=== PATIENT | male | born 1965 | race Caucasian/White ===

== ENCOUNTER 2017-09-09 16:08 | Emergency (ER) | payer OTHER ==
[2017-09-09 16:13] VITALS: TEMP 97.5
[2017-09-09] MEDS ORDERED: ADENOSINE 6 MG/2 ML VIAL ONE ×2 (16:17→16:24)
--- NOTE | 2017-09-09 16:17 | EDPHY ---
H & P Stated Complaint: Rapid heart rate >3hrs Time Seen by Provider: 09/09/17 16:17 - Personal History Current Tetanus Diphtheria and Acellular Pertussis (TDAP): Yes - Medical/Surgical History Other PMH: previous tachycardia untreated - Social History Smoking Status: Never smoked Constitutional: Initial Vital Signs Temperature (C) 36.4 C 09/09/17 16:09 Heart Rate 178 H 09/09/17 16:09 Respiratory Rate 20 09/09/17 16:09 Blood Pressure 94/57 L 09/09/17 16:09 O2 Sat (%) 99 09/09/17 16:09 O2 Delivery Mode Nasal Cannula O2 (L/minute) 2 Allergies/Adverse Reactions: No Known Allergies Allergy (Unverified 09/09/17 16:12) Home Medications: Medication Instructions Recorded NK [No Known Home Meds] 09/09/17 Medical Decision Making ED Course/Re-evaluation: CHIEF COMPLAINT: Rapid heart rate HISTORY OF PRESENT ILLNESS: The patient is a 51 y/o male with 2 prior episodes of a rapid heart rate arriving with his girlfriend complaining of a rapid heart rate for the last four hours. He was skiing at [place] today and while in the lodge he climbed up some stairs and developed a sudden rapid heart rate. He measured his pulse between 180-200 and it did not improve with rest. He initially had associated substernal chest pressure that has resolved since decreasing altitude. He currently feels lightheaded, dizzy, and near-syncopal, but denies chest pain or dyspnea. He had the same symptoms a year ago after drinking an energy drink that resolved with time. He has never been evaluated for this before and has no known personal or familial cardiac disease or dysrhythmia history. REVIEW OF SYSTEMS: A 10 point review of systems was performed and is negative with the exception of the elements mentioned in the history of present illness. PHYSICAL EXAM: HR 170, BP 94/57, O2 Sat, RR. Temp noted General Appearance: Alert, well hydrated, appropriate, lying flat, mildly diaphoretic. Head: Atraumatic without scalp tenderness or obvious injury Eyes: Pupils equal, round, reactive to light and accommodation, EOMI, no trauma , no injection. Ears: Clear bilaterally, no perforation, normal landmarks Nose: Atraumatic, no rhinorrhea, clear. Throat: There is no erythema or exudates, no lesions, normal tonsils, mucus membranes moist. Neck: Supple, nontender, no lymphadenopathy. Respiratory: No retractions, no distress, no wheezes, and no accessory muscle use. Lungs are clear to auscultation bilaterally. Cardiovascular: Rapid rate and rhythm, no murmurs, rubs, or gallops. Good capillary refill all extremities. Gastrointestinal: Abdomen is soft, nontender, non-distended, no masses, no rebound, no guarding, no peritoneal signs. Musculoskeletal: Normal active ROM of all extremities, atraumatic. Neurological: Alert, appropriate, and interactive. The patient has non-focal cranial nerves, motor, sensory, and cerebellar exam. Skin: No rashes, good turgor, no nodules on palpation. Past medical history: Prior episodes of rapid heart rate Past surgical history: Denies Family history: No cardiac disease or dysrhythmia history Social history: Girlfriend at beside. Lives between [place] and [place]. PCP: Dr. Littlejohn. DIAGNOSTICS/PROCEDURES/CRITICAL CARE TIME: The 12 lead EKG was interpreted by myself. SVT rate 170. See hard copy and/or "tracemaster" electronic copy for interpretation. The 12 lead EKG was interpreted by myself. Sinus tachycardia rate 112. See hard copy and/or "tracemaster" electronic copy for interpretation. Critical care time spent by me, Dr. Wilson, exclusively with this patient was 35 minutes, exclusive of PA time and exclusive of procedures. The organ system at risk was cardiovascular. Time spent in serial assessments of the patient, discussion with patient's family, consideration of medical and electrical cardioversion, cardiology consultation, and review of EKGs. DIFFERENTIAL DIAGNOSIS: The differential diagnosis for the patient's narrow complex tachycardia included but was not limited to various causes of sinus tachycardia such as dehydration and medicines, SVT, atrial flutter, atrial fibrillation, pulmonary causes. MEDICAL DECISION MAKING: This is a healthy 51 y/o male with history of 2 prior episodes of rapid heart rate who presents in SVT around 170 for about 4 hours. He alert and oriented, but feels lightheaded and near-syncopal. Plan for IV, EKG, and adenosine to attempt to convert rhythm. 1622: 12mg IV adenosine administered. No change in rhythm. Repeat EKG with doubled paper speed doesn't show P waves and appears regular - consistent with SVT. Will try another dose of adenosine before considering electrical cardioversion. 1628: Additional 12mg IV adenosine administered. Patient converted to sinus tachycardia around 112 and HR is slowly dropping. BP 92/65. Labs ordered including troponin and BNP ordered to assess for heart strain. 1642: Consulted with Dr. Mederos, board certified family physician. His office will contact patient on Monday to arrange echocardiogram and EP follow up. Labs show mild renal insufficiency, likely related to poor perfusion during 4 hours of SVT. No anemia, normal troponin and BNP. Reassessed patient and discussed work up. He is resting comfortable. HR 94, BP 95/70. He feels ready for discharge home. Discussed referral to cardiology for echo and EP consultation. Return precautions discussed. He agrees with this plan. - Data Points Laboratory Results: Laboratory Results 09/09/17 16:20 09/09/17 16:20 09/09/17 09/09/17 16:20 16:20 WBC 9.93 10^3/uL H 10^3/uL (3.80-9.50) RBC 5.68 10^6/uL 10^6/uL (4.40-6.38) Hgb 16.3 g/dL g/dL (13.7-17.5) Hct 45.2 % % (40.0-51.0) MCV 79.6 fL L fL (81.5-99.8) MCH 28.7 pg pg (27.9-34.1) MCHC 36.1 g/dL g/dL (32.4-36.7) RDW 13.7 % % (11.5-15.2) Plt Count 255 10^3/uL 10^3/uL (150-400) MPV 11.0 fL fL (8.7-11.7) Neut % (Auto) 63.2 % % (39.3-74.2) Lymph % (Auto) 28.0 % % (15.0-45.0) [place] % (Auto) 7.6 % % (4.5-13.0) Eos % (Auto) 0.4 % L % (0.6-7.6) Baso % (Auto) 0.4 % % (0.3-1.7) Nucleat RBC Rel Count 0.0 % % (0.0-0.2) Absolute Neuts (auto) 6.28 10^3/uL 10^3/uL (1.70-6.50) Absolute Lymphs (auto) 2.78 10^3/uL 10^3/uL (1.00-3.00) Absolute Monos (auto) 0.75 10^3/uL 10^3/uL (0.30-0.80) Absolute Eos (auto) 0.04 10^3/uL 10^3/uL (0.03-0.40) Absolute Basos (auto) 0.04 10^3/uL 10^3/uL (0.02-0.10) Absolute Nucleated RBC 0.00 10^3/uL 10^3/uL (0-0.01) Immature Gran % 0.4 % % (0.0-1.1) Immature Gran # 0.04 10^3/uL 10^3/uL (0.00-0.10) Sodium 139 mEq/L mEq/L (134-144) Potassium 3.6 mEq/L mEq/L (3.5-5.2) Chloride 104 mEq/L mEq/L (97-110) Carbon Dioxide 17 mEq/l L mEq/l (22-31) Anion Gap 18 mEq/L H mEq/L (8-16) BUN 18 mg/dL mg/dL (7-23) Creatinine 1.5 mg/dL H mg/dL (0.7-1.3) Estimated GFR 49 Glucose 133 mg/dL H mg/dL (70-100) Calcium 9.9 mg/dL mg/dL (8.5-10.4) Troponin I < 0.012 ng/mL ng/mL (0.000-0.034) NT-Pro-B Natriuret Pep 81 pg/mL pg/mL (0-125) Medications Given: Discontinued Medications Adenosine (Adenosine) 12 mg IVP EDNOW ONE Stop: 09/09/17 16:33 Last Admin: 09/09/17 16:20 Dose: 12 mg Adenosine (Adenosine) 12 mg IVP EDNOW ONE Stop: 09/09/17 16:34 Last Admin: 09/09/17 16:25 Dose: 12 mg Sodium Chloride (Ns) 2,000 mls @ 0 mls/hr IV ONCE ONE PRN Reason: Wide Open Stop: 09/09/17 16:34 Last Admin: 09/09/17 16:44 Dose: 2,000 mls Metoprolol Tartrate (Lopressor Injection) 5 mg IVP EDNOW ONE Stop: 09/09/17 16:33 Last Admin: 09/09/17 16:37 Dose: 5 mg Departure - Departure Disposition: Home, Routine, Self-Care Clinical Impression: Paroxysmal SVT (supraventricular tachycardia), Renal insufficiency Condition: Good Instructions: Supraventricular Tachycardia (ED) Additional Instructions: 1. You should receive a call from [facility] between 8a-11a on Monday to arrange an echocardiogram and consultation with Dr. Jackson. Please contact them if you do not receive this call. You need to follow up with a board certified family physician without fail within the week. 2. Return to the ED for recurrent symptoms, chest pain, shortness of breath, palpitations, or other worsening of condition. Referrals: Lori Littlejohn MD [Primary Care Provider] - As per Instructions Demar Jackson MD [Medical Doctor] - As per Instructions Report Scribed for: Ravindra Wilson Report Scribed by: Leesa Bernstein Date of Report: 09/09/17 Time of Report: 16:33
--- NOTE | 2017-09-09 16:20 | CPEKG ---
Heart Rate: 169 RR Interval: 355 QRSD Interval: 80 QT Interval: 292 QTC Interval: 490 P [place]: 0 QRS [place]: 77 T Wave [place]: -16 EKG Severity - ABNORMAL ECG - EKG Impression: SUPRAVENTRICULAR TACHYCARDIA EKG Impression: REPOLARIZATION ABNORMALITY, PROB RATE RELATED Electronically Signed By: Demar Jackson 11-Sep-2017 20:29:05
[2017-09-09] MEDS ORDERED: METOPROLOL TARTRATE 5 MG/5 ML INJ ONE (16:29)
[2017-09-09] MEDS ORDERED: METOPROLOL TARTRATE 5 MG/5 ML INJ IVP ONE (16:32)
[2017-09-09] MEDS ORDERED: ADENOSINE 6 MG/2 ML VIAL IVP ONE ×2 (16:32→16:33)
[2017-09-09] MEDS ORDERED: NS 2,000 ML IV ONE (16:33)
[2017-09-09 16:35] VITALS: RESP 16
--- NOTE | 2017-09-09 16:38 | CPEKG ---
Heart Rate: 117 RR Interval: 513 P-R Interval: 152 QRSD Interval: 90 QT Interval: 336 QTC Interval: 469 P [place]: 69 QRS [place]: 82 T Wave [place]: 13 EKG Severity - OTHERWISE NORMAL ECG - EKG Impression: SINUS TACHYCARDIA Electronically Signed By: Demar Jackson 11-Sep-2017 20:28:52
[2017-09-09 16:39] LABS: PLATELET COUNT 255 10^3/uL (150-400)
[2017-09-09 17:11] VITALS: PULSE 94
[2017-09-09 17:40] VITALS: BP 99/73; O2SAT 97
== END 2017-09-09 17:40 | disposition home or self-care (01) ==
PROC: 3E0337Z Introduction of Electrolytic and Water Balance Substance into Peripheral Vein, Percutaneous Approach (ICD-10-PCS; principal; 2017-09-09)
DX: I47.1 Supraventricular tachycardia (principal); N28.9 Disorder of kidney and ureter, unspecified; R42 Dizziness and giddiness
CPT/HCPCS: 96374; J0153

== ENCOUNTER 2017-09-21 11:28 | Observation (INO) | payer OTHER ==
--- NOTE | 2017-09-21 11:30 | PDHPUP ---
History & Physical Update H&P update statement: This history and physical update is based on an assessment of the patient which was completed after admission or registration (within 24 hours), but prior to the surgery/procedure. H&P update: H&P reviewed & patient examined, no change in patient's condition since H&P completed
[2017-09-21] MEDS ORDERED: NS 1,000 ML IV ONE (11:31)
[2017-09-21] MEDS ORDERED: LIDOCAINE 1% 300 MG/30 ML SDV ONE (12:12)
[2017-09-21] MEDS ORDERED: BUPIVACAINE 0.5% 30 ML SDV ONE (12:13)
[2017-09-21] MEDS ORDERED: ISOPROTERENOL HCL/D5W 0.2 MG/50 ML BAG IV ONE (12:13)
[2017-09-21] MEDS ORDERED: HEPARIN 10,000 UNIT/10 ML MDV (1,000 UNIT/ML) ONE (12:13)
[2017-09-21 12:16] LABS: PLATELET COUNT 186 10^3/uL (150-400)
--- NOTE | 2017-09-21 12:16 | CPEKG ---
Heart Rate: 78 RR Interval: 769 P-R Interval: 164 QRSD Interval: 88 QT Interval: 376 QTC Interval: 429 P [place]: 54 QRS [place]: 55 T Wave [place]: 13 EKG Severity - NORMAL ECG - EKG Impression: SINUS RHYTHM EKG Impression: HEART RATES HAVE SLOWED 30 BPM SINCE LAST ECG Electronically Signed By: Eugene Engle 24-Sep-2017 10:22:55
[2017-09-21 12:24] LABS: INR 1.09 (0.83-1.16); PROTIME(PATIENT) 14.3 SEC (12.0-15.0)
[2017-09-21] MEDS ORDERED: MIDAZOLAM 2 MG/2 ML VIAL IVP ONE (12:58)
--- NOTE | 2017-09-21 12:58 | PDANEPAE ---
ANE History of Present Illness svt ANE Past Medical History - Cardiovascular History Hx Hypertension: No Hx Arrhythmias: Yes Hx Chest Pain: No Hx Coronary Artery / Peripheral Vascular Disease: No Hx CHF / Valvular Disease: No Hx Palpitations: Yes - Pulmonary History Hx COPD: No Hx Asthma/Reactive Airway Disease: No Hx Recent Upper Respiratory Infection: No Hx Oxygen in Use at Home: No Hx Sleep Apnea: No - Neurologic History Hx Cerebrovascular Accident: No Hx Seizures: No Hx Dementia: No - Endocrine History Hx Diabetes: No Hypothyroid: No Hyperthyroid: No - Renal History Hx Renal Disorders: No - Liver History Hx Hepatic Disorders: No ANE Review of Systems Review of Systems: - Exercise capacity METS (RN): 4 METS ANE Patient History - Allergies Allergies/Adverse Reactions: No Known Allergies Allergy (Unverified 09/09/17 16:12) - Home Medications Home Medications: NK [No Known Home Meds] 09/09/17 [Last Taken Unknown] - Anes Hx Anes Hx: no prior problems - Smoking Hx Smoking Status: Never smoked ANE Labs/Vital Signs - Labs Result Diagrams: 09/21/17 12:10 09/21/17 12:10 - Vital Signs Height: 187.96 cm Weight: 104.5 kg ANE Physical Exam - Airway Mallampati Score: Class 2 Mouth exam: normal dental/mouth exam - Pulmonary Pulmonary: no respiratory distress - Cardiovascular Cardiovascular: regular rate and rhythym - ASA Status ASA Status: II ANE Anesthesia Plan Anesthesia Plan: general endotracheal anesthesia
[2017-09-21] MEDS ORDERED: ONDANSETRON 4 MG/2 ML VIAL ONE (13:10)
[2017-09-21] MEDS ORDERED: DEXAMETHASONE 4 MG/ML VIAL ONE (13:10)
[2017-09-21] MEDS ORDERED: ROCURONIUM 100 MG/10 ML VIAL ONE (13:10)
[2017-09-21] MEDS ORDERED: fentaNYL 100 MCG/2 ML INJ ONE (13:10)
[2017-09-21] MEDS ORDERED: PROPOFOL 200 MG/20 ML VIAL ONE (13:10)
[2017-09-21] MEDS ORDERED: KETOROLAC 30 MG/1 ML SDV ONE (13:10)
[2017-09-21] MEDS ORDERED: ROCURONIUM 50 MG/5 ML VIAL ONE (14:15)
[2017-09-21] MEDS ORDERED: OXYCODONE/APAP 5/325 TAB PO PRN (15:31)
[2017-09-21] MEDS ORDERED: SUGAMMADEX SODIUM 200 MG/2 ML VIAL IVP ONE (15:31)
[2017-09-21] MEDS ORDERED: ONDANSETRON 4 MG/2 ML VIAL IVP PRN ×2 (15:31→15:48)
[2017-09-21] MEDS ORDERED: ACETAMINOPHEN 325 MG TAB PO PRN (15:31)
[2017-09-21] MEDS ORDERED: fentaNYL 100 MCG/2 ML INJ IVP PRN (15:48)
[2017-09-21] MEDS ORDERED: ALBUTEROL 3 ML DEYVIAL IH PRN (15:48)
[2017-09-21] MEDS ORDERED: NALOXONE HCL 0.4 MG/ML INJ IVP PRN (15:48)
[2017-09-21] MEDS ORDERED: MEPERIDINE 25 MG/ML SYR IVP PRN (15:48)
--- NOTE | 2017-09-21 15:48 | POSTANESTH ---
Post Anesthetic Evaluation Cardiovascular Status: Normal, Stable Respiratory Status: Normal, Stable Level of Consciousness/Mental Status: Can Participate in Eval Pain Control: Adequate, Prn Tx Ordered Nausea/Vomiting Control: Adequate, Prn Tx Ordered Complications Possibly Related to Anesthesia: None Noted
[2017-09-22 04:51] VITALS: RESP 14
[2017-09-22 05:22] LABS: PLATELET COUNT 172 10^3/uL (150-400)
[2017-09-22 05:29] LABS: INR 1.09 (0.83-1.16); PROTIME(PATIENT) 14.3 SEC (12.0-15.0)
[2017-09-22 06:00] LABS: CREATINE KINASE 63 IU/L (0-224)
[2017-09-22 07:17] VITALS: BP 114/65; PULSE 75; TEMP 98.1; O2SAT 95
--- NOTE | 2017-09-22 08:51 | CPEKG ---
Heart Rate: 76 RR Interval: 789 P-R Interval: 168 QRSD Interval: 94 QT Interval: 376 QTC Interval: 423 P [place]: 60 QRS [place]: 75 T Wave [place]: 28 EKG Severity - NORMAL ECG - EKG Impression: SINUS RHYTHM EKG Impression: ST ELEV, PROBABLE NORMAL EARLY REPOL PATTERN Electronically Signed By: Eugene Engle 24-Sep-2017 10:23:02
[2017-09-22] MEDS ORDERED: ASPIRIN 325 MG TAB PO SCH (09:00)
--- NOTE | 2017-09-22 09:04 | EPPROC ---
Electrophysiology Procedure Note: PROCEDURES PERFORMED: 00213-74 EP evaluation with RA/RV/LA pace/record, with arrhythmia induction 65356-88 EP evaluation with RA/RV pace record, insert/reposition catheter, with arrhythmia induction 36975 Intracardiac catheter ablation, SVT arrhythmogenic focus 81238 3D mapping Fluoroscopy INDICATION: Pt with episodes of palpitation with lightheadedness and dizziness who came to ER and was found to have SVT and was CV with Adenosine. Hence it was decided to perform EP study with possibility of ablation PROCEDURE: Catheters & Anesthesia: The patient arrived in the Electrophysiology Laboratory in the fasting state. The right clavicular region, right groin, and left groin area were prepped and draped in the usual sterile manner. Anesthesiologist administered general anesthesia. Appropriate non-invasive blood pressure, pulse oximetry and end- tidal CO2 monitoring was established. All catheters were placed percutaneously using the modified Seldinger technique , and advanced into position under fluoroscopic guidance. One CRD2 catheter was advanced to the His-bundle position via the right femoral vein. . One #7 Cypriot deflectable catheter with 10 pairs of electrodes was placed via the right femoral vein into the coronary sinus. Programmed stimulation was performed from the right atrium, right ventricle and coronary sinus (left atrium). Parahisian pacing demonstrated constant H-A interval with changing V-A intervals and stimulus-A intervals during capture and loss of capture of proximal RBB proving retrograde conduction over AV node. AVNRT was induced easily during infusion of isoproterenol 2 mcg/min. Ventricular extrastimuli delivered during tachycardia without altering antegrade His bundle activation did not advance next atrial potential, indicating that the tachycardia was not utilizing an accessory pathway for retrograde conduction. VA interval was 72 ms. VA during [employer] was 173ms Mapping of the right atrium and coronary sinus during AVNRT identified earliest atrial activation above the tendon of Ebony at a level slightly posterior to the level of the His bundle, consistent with retrograde conduction over the fast AV dylan pathway. A #8 Cypriot deflectable quadrapolar electrode catheter (2mm-5mm-2mm spacing) with 4 mm tip electrode and sensor for the 3D mapping Carto system was advanced to the right atrium. 3 D mapping of the inter-atrial septum and coronary sinus was performed and location of the AV node was marked. RF applications were delivered to the region between the tricuspid annulus and the coronary sinus ostium, at the level of the upper edge of the coronary sinus ostium. Radiofrequency applications were also delivered along the roof of the proximal coronary sinus. Junctional rhythm occurred during all of the RF applications. Programmed stimulation was continued post ablation at baseline and during graded doses of isoproterenol upto 4mcg/min. Sustained AVNRT was not inducible. There were 0 echo beats. AT was induced which appeared to come from close to Sinus region and since the significance of it was unknown, it was decided not to attempt an ablation. All episodes of this AT resolved within few sec The catheters were removed. The long sheath was changed to a short 9 Fr sheath. The patient was transferred to the cardiovascular holding area in stable condition. Vascular access sheaths were removed in the holding area. There were no apparent complications. 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 ( Slow/fast AVNRT). Successful ablation of the slow AV dylan pathway with elimination of 1:1 antegrade conduction over the slow AV dylan pathway, all retrograde conduction over the slow AV dylan pathway and the inducibility of AVNRT. No complications.
--- NOTE | 2017-09-22 09:23 | ECHO ---
[email or web address] [address] [address] Main: [phone] Fax: Transthoracic Echocardiogram Name: ARACELI MONSIVAIS MR#: [id number] Study Date: 09/22/2017 Study Time: 08:26 AM Date of : 1965 Age: 51 year(s) Height: 188 cm (74 in.) Weight: 104.33 kg (230 lb.) BSA: 2.31 m2 Gender: Male Examination: Echo Indication: Image Quality: Contrast: Requested by: Jefferson Doyle BP: 114 mmHg/65 mmHg Heart Rate: Rhythm: Normal sinus rhythm Indication: Procedure Staff Piece Goods Clerk: Miguel Calero Reading Physician: Agustin Alejo Requesting Provider: Conclusions: Normal global systolic LV function. EF is 67 %. The mitral valve is normal in appearance and function. The aortic valve is normal in appearance and function. The aorta is normal. Measurements: Chambers Valvular Assessment AV/MV Valvular Assessment TV/PV Normal Normal Normal Name Value Range Name Value Range Name Value Range Ao Delfina (MM): 3.9 cm (2.2 cm-3.7 AV Vmax: 0.99 m/s (1 m/s-1.7 PV Vmax: 1.02 m/s (0.6 m/s-0.9 cm) m/s) m/s) IVSd (2D): 0.9 cm (0.6 cm-1.1 AV maxP mmHg ( - ) PV PGmax: 4 mmHg ( - ) cm) LVOT Vmax: 0.88 m/s (0.7 m/s-1.1 LVDd (2D): 4.6 cm (4.2 cm-5.9 m/s) cm) MV E Vmax: 0.71 m/s ( - ) LVDs (2D): 2.9 cm (2.1 cm-4 MV A Vmax: 0.48 m/s ( - ) cm) MV E/A: 1.48 ( - ) LVPWd (2D): 1.2 cm (0.6 cm-1 cm) LVEF (2D): 67 (>=54 %) Continued Measurements: Chambers Valvular Assessment AV/MV Name Value Name Value LADs Lon.2 cm MV E/E' Septal: 16.80 LA Area: 13.8 cm2 MV E/E' Lateral: 7.60 Patient: ARACELI MONSIVAIS Study Date: 09/22/2017 Page 1 of 2 08:26 AM Findings: Left Ventricle: Normal size left ventricle. No LV hypertrophy. Normal global systolic LV function. EF is 67 %. No regional wall motion abnormality. Normal diastolic LV function. Right Ventricle: Normal size right ventricle. Left Atrium: The left atrium is normal in size. Right Atrium: The right atrium is normal in size. Mitral Valve: The mitral valve is normal in appearance and function. Aortic Valve: The aortic valve is normal in appearance and function. Tricuspid Valve: The tricuspid valve is normal in appearance and function. Pulmonic Valve: The pulmonic valve is normal in appearance and function. Aorta: The aorta is normal. Pericardium: No pericardial effusion. (No Signature Object) Patient: ARACELI MONSIVAIS Study Date: 09/22/2017 Page 2 of 2 08:26 AM D:_[id number]
--- NOTE | 2017-09-22 14:31 | ASDISCHSUM ---
Discharge Information Plan Status:Home with No Needs Medically Cleared to Leave:09/21/2017 Discharge Date:09/22/2017 10:55 AM CM D/C Disposition: ADT D/C Disposition:Home, Routine, Self-Care Projected Discharge Date:09/22/2017 12:00 AM Transportation at D/C: Discharge Delay Reason: Follow-Up Date:09/22/2017 12:00 AM Discharge Slot: Final Diagnosis: Placement Information Patient Contact Information Contact Name:TAB Relationship:Other Address: Home Phone: City: [facility] [place] Phone: [facility] Code: Email: Financial Information Financial Class:HMO and PPO Plans Primary Plan Desc:[employer] Primary Plan Number:[id number] Secondary Plan Desc: Secondary Plan Number: Assessment Information Intervention Information
--- NOTE | 2017-09-22 18:07 | GDS ---
[f rep st] DISCHARGE SUMMARY ADMISSION DIAGNOSIS: Paroxysmal supraventricular tachycardia. DISCHARGE DIAGNOSES: 1. Paroxysmal supraventricular tachycardia. 2. Status post supraventricular tachycardia ablation for atrioventricular dylan reentry tachycardia for supraventricular tachycardia. PROCEDURES PERFORMED DURING HOSPITALIZATION: 1. Electrocardiogram. 2. Electrophysiology study. 3. Ablation of an AVNRT pathway. 4. Echocardiogram. BRIEF HISTORY: Please see H and P. The patient is a 51-year-old male who recently had been noticing increased palpitations with lightheadedness. He has been seen in the Emergency Department, which wa s noted to have documented SVT. He had to be cardioverted out of this. He was sent to see Dr. Doyle, who evaluated the patient, and felt he would be an appropriate candidate to undergo EP study with po ssible ablation. HOSPITAL COURSE: The patient was admitted through CVC, prepped for procedure, and taken to the [facility] rophysiology suite, where Dr. Doyle performed EP procedure. He found AV dylan reentry tachycardia usi ng a slow arteriovenous dylan pathway for antegrade conduction, and a fast AV dylan pathway for retro grade conduction was noted. This was successfully ablated. No complications. The patient was trans ferred back to the CVC, and ultimately to the PCU for overnight observation. Throughout the night, t he patient reports no chest pain, shortness of breath, palpitations, or lightheadedness. He has yolanda ined on continuous cardiac monitoring, shows that he has remained in sinus rhythm with no malignant a rrhythmias or pauses noted. He has been up and walking the unit without any difficulties. PHYSICAL EXAMINATION: GENERAL APPEARANCE: Medium built, well-groomed, male. He is alert and oriented to person, place, time, situation. Appears to be under no acute distress. CURRENT JANESSA L SIGNS: Blood pressure of 114/65, heart rate 75, respirations 14, saturating 95% on room air, tempe rature 36.7 degrees Celsius. HEENT: Head is normocephalic. Lips and tongue are pink and moist with no signs of cyanosis. Conjunctivae pink. NECK: Trachea is midline, +2 carotid pulses bilateral. No auscultated bruits. No jugular vein distention. RESPIRATORY: Lungs clear to auscultation. No r honchi, rales or wheezes. No accessory muscle use. No intercostal muscle retraction noted. CARDIAC : Regular rate, regular rhythm, S1, S2. No S3, S4, gallops, rubs, or murmur noted. ABDOMEN: Soft, nontender, bowel sounds x4 quadrants. No organomegaly. No palpable masses. SKIN: [place], warm, dry . No cyanosis, no clubbing, no peripheral edema. VASCULAR: +2 carotids bilateral, +2 radials bilat eral, +1 dorsal pedal and posterior tibial pulses bilateral. CATHETER INSERTION SITE/RIGHT GROIN SIT E: With no redness, swelling, drainage, ecchymosis, or hematoma. No auscultated bruit over site. LABORATORY STUDIES: Laboratory studies drawn today show WBC 8.89, hemoglobin of 14.6, hematocrit of 41.6, platelet count of 172, INR 1.09, sodium is 142, potassium 4.5, chloride 106, CO2 of 23, BUN 17, creatinine 1.2, glucose 104, calcium 9.5, CK was 63, CK-MB was 0.59, troponin was 0.033. Expected m ild elevation of cardiac enzymes status post ablation. STUDIES: Electrophysiology and ablation as mentioned above. Morning electrocardiogram shows sinus r hythm, normal axis, noted mild ST elevation in anterior leads, probable early repolarization. Preliminary echocardiogram showing normal LV systolic function. Normal ejection fraction. No perica rdial effusion. DISCHARGE DISPOSITION: The patient will be discharged home in stable condition. He is under activit y restrictions of not lifting more than 10 pounds for the next week. No strenuous activities for the next 2 weeks. DISCHARGE MEDICATIONS: Please see discharge medication reconciliation sheet. Note, the patient has been started on aspirin therapy at 325 mg, which he will remain on for at least the next month. DISCHARGE INSTRUCTIONS: Post ablation discharge instructions went over with the patient including mo nitoring for signs of infection, bleeding precautions, activity restrictions, medication compliancy, thrombotic event precaution, and incentive spirometer usage. At the time of discharge, the patient v erbalizes understanding all instructions and has no questions. He is told that if any problems or co ncerns post discharge, he will notify our office or return to the hospital. Total time spent on discharge greater than 30 minutes. /[id number]/MODL
== END 2017-09-22 10:55 | disposition home or self-care (01) ==
LOC: FCATH 11:28 → F2W 13:32
PROVIDERS: ADMIT Internal Medicine Cardiovascular Disease; ATTEND Internal Medicine Cardiovascular Disease
PROC: 02583ZZ Destruction of Conduction Mechanism, Percutaneous Approach (ICD-10-PCS; principal; 2017-09-21)
PROC: 5A1213Z Performance of Cardiac Pacing, Intermittent (ICD-10-PCS; principal; 2017-09-21)
PROC: 02K83ZZ Map Conduction Mechanism, Percutaneous Approach (ICD-10-PCS; principal; 2017-09-21)
PROC: 4A023FZ Measurement of Cardiac Rhythm, Percutaneous Approach (ICD-10-PCS; principal; 2017-09-21)
DX: I47.1 Supraventricular tachycardia (principal); R07.9 Chest pain, unspecified; R00.2 Palpitations
CPT/HCPCS: 93005; 93306; 93613; 93621; 93623; 93653; C1732; G0378; C1730; J1100; J1644; J1885; J2250; J2405; J2704; J3010